=== PATIENT | female | born 1930 | race Caucasian/White ===

== ENCOUNTER → 2017-09-08 | Outpatient (CLI) | payer MEDICARE, OTHER ==
[~2017-09-08] MED LIST: AZITHROMYCIN 2250 MG PO; CEFTIN 250 MG250 MG PO; CELEBREX 200 M200 MG PO; COLACE 100 MG100 MG PO; COUMADIN 2.5MG2.5 M1 PO; DILTIAZEM 24HR180 MG PO; ENOXAPARIN80 MG/0.1 SUBQ; HYDROCHLOROTHIA25 M2 PO; HYDROCODON-ACE1 EAC7 PO; HYDROCODON-ACE1 EAC8 PO; HYDROCODONE-AP1 EA11 PO; LISINOPRIL40 MG PO; MEDROLDOSEPACK PO; NYAMYC15 GM TOP; PERCOCET PO; TOPROL XL25 MG PO; TORSEMIDE PO; VENTOLIN HFA 1818 GM INH; VITAMIN D22000 UNIT PO
--- NOTE | 2017-09-17 09:00 | PAINCON ---
[address] [address] PAIN MANAGEMENT CONSULTATION Name: PHAMYOSEPH E Room: [facility] Fredy#: [id number] Admission: 09/08/17 Attend Phys: Christopher Mayer DO Discharge: Date of : [birth year] Report #: [id number] THIS REPORT FOR: //name// CC: Christopher Grover MD DATE OF SERVICE: 09/08/2017 REFERRING PHYSICIAN: Marli Grover MD CHIEF COMPLAINT: Left shoulder pain. HISTORY OF PRESENT ILLNESS: As you know, the patient is a very pleasant 87-year-old female who has been followed by [facility] for bilateral shoulder pain, left and right side. Today, pain is experienced mostly on the left side and she returns today requesting a left intraarticular shoulder injection under fluoroscopic guidance, she is also requesting refill of her pain medications for her other pain generators including her low back and right shoulder. She indicates pain today at a level of 6/10, intra-articular injections have been beneficial in alleviating symptoms to a great degree in the patient's case. She returns today requesting a left intraarticular shoulder injection. ALLERGIES: TAPE, IV CONTRAST AGENT, METFORMIN and DIGOXIN. CURRENT MEDICATIONS: Celecoxib 200 mg once a day, diltiazem 180 mg twice a day, docusate sodium 100 mg once a day, cholecalciferol 2000 units once a day, hydrocodone/acetaminophen 7.5/325 3 times a day as needed for pain control to 4 times a day, lisinopril 40 mg per day, metoprolol 25 mg per day, warfarin 2.5 mg once a day, and torsemide 10 mg per day. SOCIAL HISTORY: The patient denies tobacco, alcohol, IV or illicit drug use. She is retired, retired years ago. She is unaccompanied today. IMAGING: No new imaging available. PHYSICAL EXAMINATION: VITAL SIGNS: Blood pressure 157/100, pulse is 101, respiratory rate 16 and unlabored, the patient 93% on room air, current temperature 98.2 degrees Fahrenheit, height 5 feet 3 inches tall, weight 180 pounds, BMI calculated 32. GENERAL: Well-developed, well-nourished, well-hydrated 87-year-old female, appears her stated age, she is placing current pain score at 6/10. HEENT: Normocephalic, atraumatic. Pupils are equal, round, and reactive to light. Extraocular muscles are intact. EXTREMITIES: Show no clubbing, no cyanosis, and no edema[place] [address] PAIN MANAGEMENT CONSULTATION Name: YOSEPH NATH [facility] [id number] Admission: 09/08/17 Attend Phys: Christopher Mayer DO Discharge: Date of : [birth year] Report #: [id number] positive both on the left and right side greater than the left. Movement of the left shoulder is met with increasing pain and crepitus. ASSESSMENT: 1. Left shoulder pain. 2. Left shoulder osteoarthritis. 3. Rotator cuff tear of the left shoulder. 4. Chronic right shoulder pain. 5. Right shoulder osteoarthritis. 6. Essential hypertension. 7. Chronic intractable pain. PLAN: 1. The patient returns today in followup visit with continued left shoulder pain, she has requested intra-articular shoulder injection be provided today. As you are aware, the patient is a nonsurgical candidate given her age and her underlying physical debilitation. She has been advised that she will need to use medications, injections as necessary for pain control, but will not be a surgical candidate. The patient returns to undergo intraarticular shoulder injections as she does note improvement in symptoms with this type of procedure. She has been advised the risks and benefits of procedure, states she understood and wished to proceed. 2. The patient has requested refill of medications, she is taking hydrocodone 7.5/325 up to 4 times a day with good efficacy, she has requested refills on the medication today. We have provided a prescription of hydrocodone 7.5/325 one tab every 6 hours p.r.n. for pain, #120, release dates of today, 4 weeks from today, and 8 weeks from today. 3. The patient's blood pressure is noted to be elevated today 157/100, previous blood pressure 142/83. The patient was advised to follow up with her PCP as quickly as possible to make adjustments in her antihypertensive medications. I am unable to equate the patient's blood pressure to ongoing pain issues. I recommend strongly the patient be seen and undergo evaluation for changes in her essential hypertensive medications. 4. We will see the patient back in followup visit for possible repeat intra-articular shoulder injection. PROCEDURE NOTE DESCRIPTION OF PROCEDURE: Left intra-articular shoulder injection under fluoroscopic guidance. After obtaining written consent, the patient was taken back to fluoroscopy suite, placed in supine position. The image intensifier was then brought into position over the left shoulder and imaging was obtained. The area was prepped and draped in aseptic fashion and marked with sterile marker overlying the injection site. A 27-gauge 1-1/4-inch needle was used [place] [address] PAIN MANAGEMENT CONSULTATION Name: YOSEPH NATH Room: [facility]#: [id number] Admission: 09/08/17 Attend Phys: Christopher Mayer DO Discharge: Date of : [birth year] Report #: [id number] subcutaneous tissue with 2 mL of lidocaine 1%. A 25-gauge 2-inch needle was then advanced under fluoroscopic guidance into the left shoulder. Needle was advanced until reaching the proximal head of the humerus. After reaching the osseous structure, the needle was then retracted approximately 1 mm and aspiration noted to be negative for heme. After negative aspiration for heme, 3 mL of a solution containing 1 mL 40 mg per mL, 40 mg total triamcinolone and 2 mL bupivacaine 0.5% was injected slowly. Needle was retracted approximately half way, flushed with 1 mL of bupivacaine 0.5% and removed. Sterile bandage placed over injection site. The patient tolerated the procedure well, carefully escorted to the recovery room in stable condition. No apparent complication. After meeting discharge criteria, the patient discharged home. <ELECTRONICALLY SIGNED> By: Christopher Mayer DO 09/17/17 0900 1002 [id number] Mayer DO /nt
== END | disposition home or self-care (01) ==
LOC: M.PC 08-25 09:50
DX: M19.012 Primary osteoarthritis, left shoulder (principal); M25.511 Pain in right shoulder; G89.29 Other chronic pain; I11.0 Hypertensive heart disease with heart failure; I50.9 Heart failure, unspecified; I48.91 Unspecified atrial fibrillation; Z79.899 Other long term (current) drug therapy; Z91.041 Radiographic dye allergy status; Z88.8 Allergy status to other drugs, medicaments and biological substances; Z79.01 Long term (current) use of anticoagulants; Z79.891 Long term (current) use of opiate analgesic; Z98.890 Other specified postprocedural states

== ENCOUNTER → 2017-12-02 | Outpatient (CLI) | payer MEDICARE, OTHER ==
--- NOTE | 2017-12-17 08:18 | PAINCON ---
[facility] [address] [place] [address] PAIN MANAGEMENT CONSULTATION Name: YOSEPH NATH Room: [facility] CosmeBriseidaJoseBriseida#: [id number] Admission: 12/02/17 Attend Phys: Nancy Herrera MD Discharge: Date of : [birth year] Report #: [id number] THIS REPORT FOR: //name// CC: Marli Herrera DATE OF SERVICE: 12/02/2017 PRIMARY CARE PHYSICIAN: Marli Grover M.D. FOLLOWUP COMPLAINT: Pain in the left shoulder. Injection in the past was helpful. FOLLOWUP HISTORY: The patient is an 87-year-old female who has been seen in the Pain Clinic in the past because of left shoulder pain. States that she has had ongoing problem for quite some time. At this juncture, her left shoulder is most problematic. She has been told that the rotator cuff badly damaged on both her left and her right arm. She has difficulty lifting her arms up above neutral. Has difficulty abducting her arms to the sides. Unable to comb her hair. She has noted increasing pain and discomfort in her shoulder. She underwent a shoulder injection in 2017. She did note some improvement from that and has returned today for evaluation and possibility of another left shoulder injection. She finds that hydrocodone is helpful. ALLERGIES: IV CONTRAST DYE, METFORMIN, SENSITIVITY TO TAPE. CURRENT MEDICATIONS: Celebrex, diltiazem, vitamin D2, hydrocodone 7.5 mg, lisinopril, Coumadin, Toprol, and Lasix. PAST MEDICAL HISTORY: Left shoulder pain, left shoulder osteoarthritis, right shoulder pain, severe right shoulder osteoarthritis, chronic rotator cuff injury of the right shoulder, chronic intractable pain, hypertension, atrial fibrillation, congestive heart failure, diabetes, hypertension, neuropathy, sleep apnea, morbid obesity. PAST SURGICAL HISTORY: Bilateral knee replacements, inguinal cyst excision, cataract surgery. PAIN CLINIC ASSESSMENT: History of osteoarthritis involving knees. Height 5 foot 3 inches, weight 177 pounds, BMI is 31. VITAL SIGNS: Blood pressure 153/98, heart rate 96, respiratory rate 16, room air saturation 97%. Pain intensity /10. Fall risk. The patient has not fallen in the last [address] [place] [address] PAIN MANAGEMENT CONSULTATION Name: YOSEPH NATH Room: [facility]#: [id number] Admission: 12/02/17 Attend Phys: Nancy Herrera MD Discharge: Date of : [birth year] Report #: [id number] Blood thinner. The patient is on Coumadin for atrial fibrillation. History of hypertension, is being treated for hypertension. Opioid therapy greater than 6 weeks. The patient is on opioid therapy with use of hydrocodone 7.5 mg q.i.d. Risk assessment tool. Functional assessment tool. Recreational drug use. The patient denies use of recreational drugs. Tobacco use. The patient denies use of tobacco. PHYSICAL EXAMINATION: GENERAL: The patient is a well developed, well nourished, somewhat sick/weak appearing 87-year-old. She is alert and oriented x 3. Affect appears appropriate. Speech is fluent. HEENT: Normocephalic, atraumatic. Extraocular muscles intact. Sclerae is nonicteric. Hearing is within normal limits. Mucous membranes are moist. NECK: Without JVD or adenopathy. The patient has significant muscle loss in the shoulder areas bilaterally. She is unable to abduct her arms very far from her side. Unable to reach up high enough to comb her hair, complains of pain and discomfort in the left shoulder, which is most problematic at this juncture. HEART: History of atrial fibrillation. LUNGS: Decreased difficulty to ascertain secondary to the patient's effort. She is unable to stand or move without some assistance. Complains of left shoulder and right shoulder pain with significant restriction of movement. IMPRESSION: 1. Left shoulder pain, left shoulder osteoarthritis. 2. Rotator cuff tear of the left shoulder. 3. Chronic right shoulder pain. 4. Right shoulder osteoarthritis. 5. Essential hypertension. 6. Chronic intractable pain. 7. History of diabetes. 8. Cardiomegaly with history of congestive heart failure. 9. Obstructive sleep apnea. 10. Chronic obstructive pulmonary disease. 11. Peripheral neuropathy. 12. Bilateral knee replacement. 13. History of scarlet fever. RECOMMENDATIONS: We discussed treatment options with the patient. At this juncture, we will proceed with an injection into the left shoulder under fluoroscopy. Risks and benefits of the procedure were again discussed with the patient. Possible complication of the procedure, which could include infection, worsening of pain, no improvement of pain were discussed and the [place] [address] PAIN MANAGEMENT CONSULTATION Name: PHAMYOSEPH E Room: [facility] Daniel#: [id number] Admission: 12/02/17 Attend Phys: Nancy Herrera MD Discharge: Date of : [birth year] Report #: [id number] PROCEDURE NOTE: The patient was placed/assisted on the examination table. Fluoroscopy was placed over her left shoulder using an anterior, posterior approach. Her shoulder was then washed using a chlorhexidine solution, which was allowed to dry. A 25-gauge needle was then advanced into the area of the right humerus head. Aspiration was negative. Total of 40 mg triamcinolone was then injected into this area. Aseptic technique was maintained after the sterile drape had been placed. A 1% lidocaine was infiltrated. A 25-gauge needle was then advanced under fluoroscopic guidance into the left shoulder area. After reaching the proximal head of the humerus and osseous structure, the needle was retracted 1 mm. Aspiration was negative for heme. A total of 40 mg triamcinolone and 4 mL of 0.5% bupivacaine was slowly injected. The patient tolerated the procedure well. Sterile bandage was placed at the site. She was taken to the recovery room where she remained for an appropriate amount of time. She will follow up in the future as needed. A script for hydrocodone 7.5 mg 1 p.o. t.i.d. has been written for the next 2 months. We would like to thank you for letting us participate in her care. We hope she continues to improve. <ELECTRONICALLY SIGNED> By: Nancy Herrera MD 12/17/17 0818 [id number]. Cornell Herrera MD /SATHYA
== END | disposition home or self-care (01) ==
LOC: M.PC 01:27
DX: M19.012 Primary osteoarthritis, left shoulder (principal); M19.011 Primary osteoarthritis, right shoulder; M75.101 Unspecified rotator cuff tear or rupture of right shoulder, not specified as traumatic; G89.29 Other chronic pain; I11.0 Hypertensive heart disease with heart failure; I50.9 Heart failure, unspecified; I48.91 Unspecified atrial fibrillation; E11.9 Type 2 diabetes mellitus without complications; G47.33 Obstructive sleep apnea (adult) (pediatric); E66.01 Morbid (severe) obesity due to excess calories; J44.9 Chronic obstructive pulmonary disease, unspecified; G90.09 Other idiopathic peripheral autonomic neuropathy; Z96.653 Presence of artificial knee joint, bilateral; Z86.19 Personal history of other infectious and parasitic diseases; Z79.891 Long term (current) use of opiate analgesic; Z79.01 Long term (current) use of anticoagulants; Z98.890 Other specified postprocedural states; Z79.899 Other long term (current) drug therapy; Z91.041 Radiographic dye allergy status; Z88.8 Allergy status to other drugs, medicaments and biological substances; Z68.31 Body mass index [BMI] 31.0-31.9, adult

== ENCOUNTER → 2018-05-05 | Outpatient (CLI) | payer MEDICARE, OTHER ==
--- NOTE | 2018-06-01 10:30 | PAINCON ---
[address] [address] PAIN MANAGEMENT CONSULTATION Name: PHAMYOSEPH E Room: [facility] Daniel#: [id number] Admission: 05/05/18 Attend Phys: Nancy Herrera MD Discharge: Date of : [birth year] Report #: [id number] THIS REPORT FOR: //name// CC: Marli Herrera DATE OF SERVICE: 05/05/2018 CHIEF COMPLAINT: Left shoulder pain. HISTORY OF PRESENT ILLNESS: The patient is an 87-year-old female who has been followed in the pain clinic. She has had pain and discomfort, which has been quite problematic. It involves both of her osteoarthritic shoulders. Left is most problematic. She has returned today for an injection in the shoulder area. She rates it as a 4-5/10. Notes that the pain is quite problematic, particularly when she sleeps on that side. Notices increased pain. She found that the injection on 12/12/2017 was very helpful. It decreased her pain for 4 months. At this juncture, she feels that the pain is returning and would like to undergo another injection. She finds hydrocodone helpful. Notes that the pain is worse when she is moving her arms, lifting and bending. She has been off Coumadin for the last 6 days. ALLERGIES: IV CONTRAST, METFORMIN, SENSITIVITY TO TAPE. CURRENT MEDICATIONS: Celebrex, diltiazem, vitamin D2, hydrocodone 7.5 mg, lisinopril, Coumadin, metoprolol, and Lasix. PAIN CLINIC ASSESSMENT: 1. History of osteoarthritis involving her knees, as well as her shoulders. 2. Height 5 feet 3 inches, weight 179 pounds, BMI 32.7. 3. Vital Signs: Blood pressure 157/78, heart rate 73, respiratory rate 16, room air saturation 88, temperature 98.5. Pain intensity 4-5/10. 4. Fall risk. The patient has not fallen in the last 3 months. She is somewhat unstable and walks with a walker. 5. Blood thinner. The patient is on Coumadin for atrial fibrillation. 6. History of hypertension. The patient is being treated for hypertension. 7. Opioid therapy greater than 6 weeks. The patient is on opioid therapy and uses hydrocodone 7.5 mg q.i.d. 8. Risk assessment tool. 9. Functional assessment tool. 10. Recreational drug use. The patient denies use of recreational drugs. 11. Tobacco: The patient denies use of tobacco. PHYSICAL EXAMINATION: GENERAL: The patient is a well-developed, well-nourished, somewhat sick and cachectic appearing white 87-year-old female. She is alert, oriented x 3. [place] [address] PAIN MANAGEMENT CONSULTATION Name: PHAMYOSEPH E Room: [facility]#: [id number] Admission: 05/05/18 Attend Phys: Nancy Herrera MD Discharge: Date of : [birth year] Report #: [id number] Affect is appropriate. Speech is fluent. HEENT: Normocephalic, atraumatic. Extraocular eye muscles intact. Sclerae nonicteric. Hearing is within normal limits. Mucous membranes moist. NECK: Without JVD or adenopathy. The patient has a significant rash on the left side of her neck. She has muscle pain and discomfort in the left shoulder area as well as the right shoulder area. She is unable to abduct her shoulder very from her side. She is unable to reach high enough to comb her hair. Complains of pain and discomfort in the left shoulder. HEART: History of atrial fibrillation. LUNGS: Decreased secondary to patient effort. IMPRESSION: 1. Left shoulder and right shoulder pain, left more problematic today with osteoarthritis. 2. Rotator cuff tear on the left shoulder. 3. Chronic right shoulder pain. 4. Right shoulder osteoarthritis. 5. Essential hypertension. 6. Chronic intractable pain. 7. History of diabetes. 8. Cardiomegaly with history of congestive heart failure. 9. Obstructive sleep apnea. 10. Obstructive pulmonary disease. 11. Peripheral neuropathy. 12. Bilateral knee replacement. 13. History of scarlet fever. RECOMMENDATIONS: We discussed treatment options with the patient. At this juncture, we will proceed with a left shoulder injection. Risks and benefits of the procedure were again reviewed. They could include but are not limited to infection, increased muscle soreness, worsening of pain, no improvement in pain, bleeding and the patient elects to proceed. PROCEDURE NOTE: The patient was placed in the supine position. Her left shoulder area was sterilely prepped. Fluoroscopy was used. The needle was then advanced into the area of the left shoulder area. Aspiration was negative. A total of 80 mg Depo-Medrol, 5 mL of 0.5% bupivacaine was injected. The patient tolerated the procedure. A 25-gauge needle was used. She remained in the pain clinic for an appropriate amount of time. Hopefully, she will continue to clean benefit from this procedure. She gleaned 4 months benifit from [place] [address] PAIN MANAGEMENT CONSULTATION Name: YOSEPH NATH Room: [facility] Daniel#: [id number] Admission: 05/05/18 Attend Phys: Nancy Herrera MD Discharge: Date of : [birth year] Report #: [id number] would like to thank you for letting us participate in her care. We hope she continues to improve. <ELECTRONICALLY SIGNED> By: Nancy Herrera MD 06/01/18 1030 1619 [id number]. Cornell Herrera MD /nt
== END | disposition home or self-care (01) ==
LOC: M.PC 05:56
DX: M19.012 Primary osteoarthritis, left shoulder (principal); M75.102 Unspecified rotator cuff tear or rupture of left shoulder, not specified as traumatic; M25.511 Pain in right shoulder; G89.29 Other chronic pain; I10 Essential (primary) hypertension; I48.91 Unspecified atrial fibrillation; J44.9 Chronic obstructive pulmonary disease, unspecified; G62.9 Polyneuropathy, unspecified; Z96.653 Presence of artificial knee joint, bilateral; Z86.79 Personal history of other diseases of the circulatory system; Z91.041 Radiographic dye allergy status; Z79.891 Long term (current) use of opiate analgesic; Z79.01 Long term (current) use of anticoagulants; Z79.899 Other long term (current) drug therapy; Z86.39 Personal history of other endocrine, nutritional and metabolic disease